=== PATIENT | female | born 1985 | race Caucasian/White ===

== ENCOUNTER 2018-03-04 15:36 | Emergency (ER) | payer OTHER ==
[2018-03-04 16:06] VITALS: BP 146/80; PULSE 56; TEMP 99.1; BMI 29.1
--- NOTE | 2018-03-04 17:03 | PDOC ---
History of Present Illness - General Chief Complaint: Abscess Boil Stated Complaint: POST OP PROBLEM Time Seen by Provider: 03/04/18 16:02 History Source: Patient - History of Present Illness Initial Comments: CHIEF COMPLAINT: 32 y/o afebrile female, 23 days post from a NVD c/o swelling to her vaginal area x 1 week. HISTORY OF PRESENT ILLNESS: The patient states the area does not hurt and is not draining any discharge. The patient denies fever and all other symptoms. Vital signs on arrival are within normal limits. REVIEW OF SYSTEMS: GENERAL/CONSTITUTIONAL: No fever/chills. No weakness. No weight change. GASTROINTESTINAL: No abd pain, nausea, vomiting, diarrhea. GENITOURINARY: No dysuria, frequency, or change in urination. VAGINAL: +abscess. MUSCULOSKELETAL: No joint or muscle swelling or pain. No neck or back pain. SKIN: No rash or easy bruising. NEUROLOGIC: No headache, vertigo, loss of consciousness, or loss of sensation. PHYSICAL EXAM: GENERAL: The patient is awake, alert, and fully oriented, in no acute distress. HEAD: Normal with no signs of trauma. ABDOMEN: Soft, non-distended, non-tender even to deep palpation, no hepatomegaly or splenomegaly, no masses. VAGINAL: 1cm, well circumscribed, hard, non fluctuant, non tender lesion to right labia minor, medial to vaginal opening, not involving vaginal wall. Small area posterior to the lesion that appears to be a laceration, unsure if it 's secondary to trauma of delivery. No drainage of fluid. No surrounding erythema, edema or warmth. EXTREMITIES: Normal range of motion, no edema. NEUROLOGICAL: Normal speech, normal gait. CN II-XII grossly intact. SKIN: Warm, dry, normal turgor, no rashes or lesions noted. 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) HTN: No Seizures: No Thyroid Disease: No - Reproductive History (#): 2 Para: 1 Cervical CA: No Dysfunctional Uterine Bleeding: No Ectopic : No Endometrial CA: No Polycystic Ovaries: No Tubal Ligation: No Spontaneous : 0 - Suicide/Smoking/Psychosocial Hx Smoking History: Never smoked Have you smoked in the past 12 months: No Hx Alcohol Use: No Drug/Substance Use Hx: No Substance Use Type: None Hx Substance Use Treatment: No *Physical Exam - Vital Signs Last Vital Signs Temp Pulse Resp BP Pulse Ox 99.1 F 56 L 18 146/80 97 03/04/18 16:00 03/04/18 16:00 03/04/18 16:00 03/04/18 16:00 03/04/18 16:00 Medical Decision Making - Medical Decision Making A/P: 32 y/o female with what feels like possible scar tissue of labia minora, most likely secondary to vaginal delivery. Suggested she massage affected area and apply warm compresses. Instructed her to call Dr. Mclean tomorrow to schedule follow up appointment. THe patient verbalizes understanding of all instructions, has no further questions and is awaiting discharge. *DC/Admit/Observation/Transfer Diagnosis at time of Disposition: Scar tissue - Discharge Dispostion Disposition: HOME Condition at time of disposition: Good - Referrals - Patient Instructions Printed Discharge Instructions: Scar Tissue (Alternative Therapy), Keloid, Scars -- Overview Additional Instructions: Discharge Instructions: -You have what appears to be scar tissue of your vagina -The scar tissue is most likely from your recent vaginal delivery -There does not appear to be any infection -Please massage the area with firm pressure multiple times per day -Apply warm compresses 4-5 times per day -Call Dr. Quintero tomorrow and schedule a follow up appointment. Instrucciones de descarga: -Tienes lo que parece ser tejido cicatricial de tu vagina -El tejido cicatricial es ms probable a partir de damon parto vaginal reciente -No parece efrain ninguna infeccin -Presione el yusuf con presin firme varias veces al da -Aplicar compresas tibias 4-5 veces por da Llame a la Dra. Ingrid desouza y programe fish ilir de seguimiento. Print Language: JAMAICAN - Post Discharge Activity
== END 2018-03-04 17:22 | disposition home or self-care (01) ==
LOC: JERFT 15:36
DX: O90.89 Other complications of the puerperium, not elsewhere classified (principal); N90.89 Other specified noninflammatory disorders of vulva and perineum; O24.435 Gestational diabetes mellitus in puerperium, controlled by oral hypoglycemic drugs
CPT/HCPCS: 99281-25

== ENCOUNTER 2022-03-30 14:31 | Emergency (ER) | payer OTHER ==
[2022-03-30 14:40] VITALS: TEMP 97; BMI 23.3
[2022-03-30 17:30] LABS: BASO % 0.4 % (0-2.0); EOS % 0.3 % (0-4.5); HEMATOCRIT 39.2 % (32.4-45.2); HEMOGLOBIN 12.6 GM/dL (10.7-15.3); LYMPH % 17.4 % (8-40); MCH 26.6 pg (25.7-33.7); MCHC 32.2 g/dl (32.0-36.0); MEAN CELL VOLUME 82.7 fl (80-96); MEAN PLT VOLUME 8.1 fl (7.5-11.1); MONO % 5.8 % (3.8-10.2); NEUT % 76.1 % (42.8-82.8); PLATELET COUNT 305 10^3/uL (134-434); RBC 4.74 M/mm3 (3.60-5.2); RDW 16.4 % (11.6-15.6); WHITE BLOOD COUNT 11.4 K/mm3 (4.0-10.0)
[2022-03-30 17:40] LABS: INR 1.01 (0.83-1.09); PROTHROMBIN TIME (PATIENT) 11.6 SEC (9.7-13.0)
[2022-03-30 17:52] LABS: ALBUMIN 3.3 g/dl (3.4-5.0); CALCIUM 8.9 mg/dL (8.5-10.1)
[2022-03-30 17:55] LABS: CREATININE 0.6 mg/dL (0.55-1.3)
[2022-03-30 17:57] LABS: BILIRUBIN,TOTAL 0.3 mg/dL (0.2-1); TOT PROT 7.2 g/dl (6.4-8.2)
[2022-03-30 19:27] LABS: EPI CELLS >36 /uL (0-25.1); HYALINE CASTS 3 /uL (0-3.1); URINE APPEARANCE CLOUDY; URINE BACTERIA 518 /uL (0-1359); URINE BILIRUBIN NEGATIVE (NEGATIVE); URINE COLOR YELLOW; URINE GLUCOSE (UA) NEGATIVE (NEGATIVE); URINE KETONE NEGATIVE (NEGATIVE); URINE LEUK ESTERASE 2+ (NEGATIVE); URINE NITRITE NEGATIVE (NEGATIVE); URINE PROTEIN NEGATIVE (NEGATIVE); URINE RBC 10 /uL (0-23.9); URINE UROBILINOGEN 0.2 mg/dL (0.2-1.0); URINE WBC 66 /uL (0-25.8)
[2022-03-30 20:25] VITALS: BP 115/74; PULSE 53; RESP 16
== END 2022-03-30 21:25 | disposition home or self-care (01) ==
LOC: JER 14:31
DX: O26.851 Spotting complicating pregnancy, first trimester (principal); Z3A.01 Less than 8 weeks gestation of pregnancy
CPT/HCPCS: 36415; 76801-TC; 80053; 81003; 84702; 85025; 85610; 87086; 87186; 99284-25

== ENCOUNTER 2022-05-22 07:20 | Emergency (ER) | payer OTHER ==
[2022-05-22] MEDS ORDERED: LIDOCAINE 5% TOPICAL PATCH TP ONE (07:51)
[2022-05-22] MEDS ORDERED: ACETAMINOPHEN 325 MG TABLET (FP) PO ONE (07:51)
[2022-05-22] MEDS ORDERED: LIDOCAINE 5% TOPICAL PATCH ONE (08:02)
[2022-05-22] MEDS ORDERED: ACETAMINOPHEN 325 MG TABLET (FP) ONE (08:02)
[2022-05-22 08:10] VITALS: BP 129/69; PULSE 104; RESP 18; TEMP 98.6; BMI 32.2
[2022-05-22 09:07] LABS: PH,URINE 5.5 (5.0-8.0); URINE APPEARANCE CLEAR; URINE BILIRUBIN NEGATIVE (NEGATIVE); URINE COLOR YELLOW; URINE GLUCOSE (UA) NEGATIVE (NEGATIVE); URINE KETONE NEGATIVE (NEGATIVE)
[2022-05-22 09:08] LABS: URINE LEUK ESTERASE TRACE (NEGATIVE); URINE NITRITE NEGATIVE (NEGATIVE); URINE PROTEIN NEGATIVE (NEGATIVE); URINE UROBILINOGEN 0.2 mg/dL (0.2-1.0)
[2022-05-22] MEDS ORDERED: LIDOCAINE PATCH REMOVAL MC SCH (22:00)
== END 2022-05-22 09:40 | disposition home or self-care (01) ==
LOC: JER 07:20
DX: O9A.212 Injury, poisoning and certain other consequences of external causes complicating pregnancy, second trimester (principal); M54.50 Low back pain, unspecified; W06.XXXA Fall from bed, initial encounter; Z3A.19 19 weeks gestation of pregnancy
CPT/HCPCS: 76815; 81003; 87077; 87086; 99284-25

== ENCOUNTER 2022-11-10 06:43 | Inpatient (IN) | payer OTHER ==
[2022-11-10] MEDS ORDERED: OXYTOCIN 20 UNITS in 0.9% NS 40 UNIT/2,000 ML INFUS.BAG IV ONE (07:49)
[2022-11-10] MEDS ORDERED: ceFAZolin SODIUM 1 GM VIAL ONE (07:52)
[2022-11-10] MEDS ORDERED: morphine SULFATE (PF) 1 MG/2 ML SYRINGE ONE (07:52)
[2022-11-10] MEDS ORDERED: PHENYLEPHRINE HCL 10 MG/1 ML SINGLE DOSE VIAL ONE (07:52)
[2022-11-10 07:53] VITALS: BMI 36.9
[2022-11-10] MEDS ORDERED: CITRIC ACID/SODIUM CITRATE 30 ML UNIT-DOSE CUP PO ONE (08:10)
[2022-11-10] MEDS ORDERED: ELECTROLYTE-148 SOLN 1,000 ML IV SCH (08:15)
[2022-11-10] MEDS ORDERED: DEXAMETHASONE SOD PHOSPHATE 4 MG/1 ML VIAL ONE (08:55)
[2022-11-10] MEDS ORDERED: ONDANSETRON 4 MG/2 ML VIAL ONE (08:55)
[2022-11-10] MEDS ORDERED: IBUPROFEN 800 MG/8 ML IJ IVPB PRN (09:31)
[2022-11-10] MEDS ORDERED: SIMETHICONE 80 MG TAB.CHEW (FP) PO PRN (09:31)
[2022-11-10] MEDS ORDERED: ACETAMINOPHEN 325 MG TABLET (FP) PO PRN (09:31)
[2022-11-10] MEDS ORDERED: IBUPROFEN 600 MG TABLET (FP) PO PRN (09:31)
[2022-11-10] MEDS ORDERED: ONDANSETRON 4 MG/2 ML VIAL IVPUSH PRN (09:42)
[2022-11-10] MEDS ORDERED: ACETAMINOPHEN 1000 MG/100 ML BAG IVPB PRN (09:43)
[2022-11-10] MEDS: OXYTOCIN 20 UNITS in 0.9% NS 20 UNIT/1,000 ML INFUS.BAG IV SCH ×2 (10:00→17:43)
[2022-11-10] MEDS: METHYLERGONOVINE MALEATE 0.2 MG/1 ML AMP IM PRN ×2 (11:46→17:39)
[2022-11-10] MEDS ORDERED: oxyCODONE HCL 5 MG TABLET PO PRN (21:31)
[2022-11-11 08:22] LABS: BASO % 0.4 % (0-2.0); EOS % 0.2 % (0-4.5); HEMATOCRIT 27.3 % (32.4-45.2); LYMPH % 20.2 % (8-40); MCH 22.7 pg (25.7-33.7); MEAN CELL VOLUME 68.8 fl (80-96); MEAN PLT VOLUME 8.4 fl (7.5-11.1); MONO % 7.8 % (3.8-10.2); NEUT % 71.4 % (42.8-82.8); PLATELET COUNT 243 10^3/uL (134-434); RBC 3.97 M/mm3 (3.60-5.2); RDW 19.6 % (11.6-15.6)
[2022-11-11] MEDS ORDERED: BISACODYL 10 MG SUPP.RECT RC PRN (09:31)
[2022-11-13 07:39] LABS: BASO % 0.2 % (0-2.0); EOS % 2.1 % (0-4.5); HEMATOCRIT 26.1 % (32.4-45.2); HEMOGLOBIN 8.3 GM/dL (10.7-15.3); LYMPH % 24.8 % (8-40); MCH 22.2 pg (25.7-33.7); MCHC 31.9 g/dl (32.0-36.0); MEAN CELL VOLUME 69.6 fl (80-96); MEAN PLT VOLUME 7.9 fl (7.5-11.1); MONO % 6.5 % (3.8-10.2); NEUT % 66.4 % (42.8-82.8); PLATELET COUNT 271 10^3/uL (134-434); RBC 3.75 M/mm3 (3.60-5.2); RDW 19.9 % (11.6-15.6)
[2022-11-13 11:09] VITALS: BP 117/74; PULSE 80; RESP 18; TEMP 98
== END 2022-11-13 13:15 | disposition home or self-care (01) | DRG 540 ==
LOC: JLDR 06:43 → J3W 11:10
PROVIDERS: ADMIT Obstetrics & Gynecology; ATTEND Obstetrics & Gynecology
PROC: 10D00Z1 Extraction of Products of Conception, Low, Open Approach (ICD-10-PCS; principal; 2022-11-10)
PROC: 0UB70ZZ Excision of Bilateral Fallopian Tubes, Open Approach (ICD-10-PCS; 2022-11-10)
DX: O32.2XX0 Maternal care for transverse and oblique lie, not applicable or unspecified (principal); O24.429 Gestational diabetes mellitus in childbirth, unspecified control; O99.214 Obesity complicating childbirth; Z3A.39 39 weeks gestation of pregnancy; Z30.2 Encounter for sterilization; Z37.0 Single live birth
CPT/HCPCS: 36415; 80053; 85025; 85610; 86780; 86850; 86900; 86901; 88302-TC; 88307-TC; 94010; C9803-CS; U0003; U0005

== ENCOUNTER 2023-01-19 22:57 | Emergency (ER) | payer OTHER ==
[2023-01-19 23:04] VITALS: BP 121/78; PULSE 73; RESP 18; TEMP 99; BMI 32.5
[2023-01-20] MEDS ORDERED: ACETAMINOPHEN 1000 MG/100 ML BAG IVPB ONE (00:03)
[2023-01-20] MEDS ORDERED: ACETAMINOPHEN INJECTION 100 ML IVPB ONE (00:09)
[2023-01-20 00:46] LABS: BASO % 0.6 % (0-2.0); EOS % 2.6 % (0-4.5); HEMATOCRIT 37.4 % (32.4-45.2); HEMOGLOBIN 12.2 GM/dL (10.7-15.3); LYMPH % 23.6 % (8-40); MCH 24.1 pg (25.7-33.7); MCHC 32.6 g/dl (32.0-36.0); MEAN CELL VOLUME 73.8 fl (80-96); MEAN PLT VOLUME 7.2 fl (7.5-11.1); NEUT % 66.2 % (42.8-82.8); PLATELET COUNT 357 10^3/uL (134-434); RBC 5.08 M/mm3 (3.60-5.2); RDW 21.8 % (11.6-15.6); WHITE BLOOD COUNT 9.1 K/mm3 (4.0-10.0)
[2023-01-20 01:13] LABS: POTASSIUM 4.3 mmol/L (3.5-5.1)
[2023-01-20 01:18] LABS: ALBUMIN 3.4 g/dl (3.4-5.0); CALCIUM 9.1 mg/dL (8.5-10.1); MAGNESIUM 2.4 mg/dL (1.8-2.4)
[2023-01-20 01:19] LABS: BLOOD UREA NITROGEN 14.6 mg/dL (7-18)
[2023-01-20 01:21] LABS: CREATININE 0.5 mg/dL (0.55-1.3)
[2023-01-20 01:23] LABS: BILIRUBIN,TOTAL 0.2 mg/dL (0.2-1); TOT PROT 7.1 g/dl (6.4-8.2)
[2023-01-20 03:37] LABS: ANISOCYTOSIS 0; MACROCYTOSIS 0
== END 2023-01-20 04:40 | disposition home or self-care (01) ==
LOC: JER 22:57
PROC: 3E033NZ Introduction of Analgesics, Hypnotics, Sedatives into Peripheral Vein, Percutaneous Approach (ICD-10-PCS; principal; 2023-01-20)
DX: R10.30 Lower abdominal pain, unspecified (principal); G89.18 Other acute postprocedural pain
CPT/HCPCS: 36415; 74177-TC; 80053; 83605; 83735; 84703; 85025; 99285-25; Q9967